=== PATIENT | female | born 1995 | race Two or more races ===

== ENCOUNTER 2017-08-15 19:08 | Emergency (ER) | payer SELFPAY | END 2017-08-15 21:14 | disposition home or self-care (01) | LOC: ER 19:08 | DX: J06.9 Acute upper respiratory infection, unspecified (principal); J20.9 Acute bronchitis, unspecified; F17.210 Nicotine dependence, cigarettes, uncomplicated; Z88.6 Allergy status to analgesic agent | CPT/HCPCS: 99281 ==